=== PATIENT | male | born 2000 | race Caucasian/White ===

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

== ENCOUNTER 2023-12-18 19:12 | Emergency (ER) | payer OTHER ==
[~2023-12-18] VITALS: Ht 198.1 cm; Wt 89.4 kg
[2023-12-18 19:14] VITALS: BP 134/84; TEMP 98.7; O2SAT 99
[2023-12-18 21:03] LABS: APPEARANCE, URINE HAZY (CLEAR); BACTERIA, URINE AUTO NEGATIVE (NEGATIVE); BILIRUBIN, URINE AUTO NEGATIVE (NEGATIVE); BLOOD, URINE BLOOD NEGATIVE (NEGATIVE); COLOR, URINE YELLOW (YELLOW); GLUCOSE, URINE (UA) AUTO NEGATIVE (NEGATIVE); KETONE, URINE AUTO TRACE mg/dL (NEGATIVE); LEUKOCYTE ESTERASE, URINE AUTO NEGATIVE (NEGATIVE); MUCUS, URINE MODERATE (NEGATIVE); NITRITE, URINE AUTO NEGATIVE (NEGATIVE); PROTEIN, URINE AUTO NEGATIVE (NEGATIVE); RBC, URINE AUTO 1 /HPF (0-3); SPECIFIC GRAVITY URINE AUTO 1.023 (1.002-1.035); SQUAMOUS EPITHELIAL CELL UR AU 0 /HPF (0-6); UROBILINOGEN, URINE AUTO 0.2 mg/dL (0.0-2.0); WBC, URINE AUTO 3 /HPF (0-3)
[2023-12-18 22:19] LABS: Trichomonas vaginalis (AMP) NOT DETECTED (NEGATIVE)
[2023-12-18 22:42] LABS: GC DNA AMPLIFICATION NEGATIVE (NEGATIVE)
[2023-12-19] MEDS ORDERED: CEPH500C PO (01:15)
[2023-12-19 02:05] LABS: RSV AMPLIFICATION NEGATIVE (NEGATIVE)
== END 2023-12-19 02:17 | disposition home or self-care (01) ==
LOC: M ED 19:12
DX: L73.9 Follicular disorder, unspecified (principal); Z88.0 Allergy status to penicillin